=== PATIENT | female | born 1980 | race Caucasian/White ===

== ENCOUNTER 2016-11-20 16:04 | Emergency (ER) | payer MEDICAID ==
[~2016-11-20] VITALS: Ht 162.6 cm; Wt 66.2 kg
[2016-11-20] MEDS ORDERED: KETOROLAC TROMETHAMINE 15 MG INJ IM ONE (16:15)
[2016-11-20] MEDS ORDERED: IBUP-1954 PO (16:17)
--- NOTE | 2016-11-20 16:25 | NUR ---
UA COLLECTED AND SENT
--- NOTE | 2016-11-20 16:32 | NUR ---
PENDING HCG RESULT INORDER TO ADMINISTER TORADOL
[2016-11-20 16:36] LABS: CREATININE 0.9 mg/dL (0.6-1.3); POTASSIUM 4.3 mmol/L (3.5-5.1)
[2016-11-20] MEDS ORDERED: KETOROLAC TROMETHAMINE 30 MG INJ ONE (16:39)
[2016-11-20 16:42] LABS: BILIRUBIN,DIRECT 0.1 mg/dL (0.0-0.2); BILIRUBIN,TOTAL 0.3 mg/dL (0.2-1.0); TOTAL PROTEIN, SERUM 7.2 g/dL (6.4-8.2)
[2016-11-20 16:43] LABS: BASOPHILS % (AUTO) 0.4 % (0.0-2.0); EOSINOPHILS # (AUTO) 0.1 K/uL (0.0-0.7); EOSINOPHILS % (AUTO) 1.1 % (0.0-7.0); HEMATOCRIT 41.6 % (37-47); HEMOGLOBIN 14.2 G/DL (12.0-16.0); LYMPHOCYTES # (AUTO) 1.1 K/UL (0.8-4.8); LYMPHOCYTES % (AUTO) 13.3 % (20.5-51.5); MEAN CORPUSCULAR HEMOGLOBIN 30.6 UUG (27.0-31.0); MEAN CORPUSCULAR HGB CONC 34 g/dL (32.0-37.0); MEAN CORPUSCULAR VOLUME 89.9 FL (81.0-99.0); MONOCYTES # (AUTO) 0.2 K/UL (0.1-1.30); MONOCYTES % (AUTO) 2.9 % (0.0-11.0); NEUTROPHILS # (AUTO) 7.2 K/UL (1.8-8.9); NEUTROPHILS % (AUTO) 82.3 % (38.5-71.5); PLATELET COUNT (AUTO) 299 K/UL (150-450); RED BLOOD CELL COUNT(AUTO) 4.62 MIL/UL (4.2-5.4); WHITE BLOOD COUNT (AUTO) 8.6 K/UL (4.0-11.2)
[2016-11-20 16:49] LABS: *BLOOD, URINE 2+ (NEGATIVE); *COLOR,URINE YELLOW (YELLOW); *KETONES,URINE 1+ (NEGATIVE); *PROTEIN,URINE 1+ (NEGATIVE); LEUKOCYTE ESTERASE ,URINE NEGATIVE (NEGATIVE); NITRITE, URINE NEGATIVE (NEGATIVE); PH,URINE 5.5 (5.0-8.0); UGLUCOSE NEGATIVE (NEGATIVE)
[2016-11-20 17:00] LABS: *BILIRUBIN,URIN NEGATIVE (NEGATIVE); *CLARITY,URINE SLIGHTLY CLOUDY (CLEAR)
[2016-11-20 17:05] LABS: MUCUS,URINE MANY /LPF (0-FEW); RBC,URINE 50-80 /HPF (0-3); SQUAMOUS EPITHELIAL CELL,UR MODERATE /HPF (NONE SEEN); WBC,URINE 0-3 /HPF (0-3)
[2016-11-20 17:45] VITALS: BP 110/72
--- NOTE | 2016-11-20 17:46 | NUR ---
Patient discharged to home in stable conditon. Written and verbal after care instructions given. Patient verbalizes understanding of instructions. Prescription provided per MD's order. No further questions or concerns noted prior on leaving the ED.
== END 2016-11-20 17:46 | disposition home or self-care (01) ==
LOC: ER 16:10
DX: R10.2 Pelvic and perineal pain (principal); M54.30 Sciatica, unspecified side; F41.9 Anxiety disorder, unspecified; Z79.1 Long term (current) use of non-steroidal anti-inflammatories (NSAID)
CPT/HCPCS: 36415; 76856; 83690; 84703; 85025; A4663; J1885

== ENCOUNTER 2018-08-29 16:02 | Emergency (ER) | payer MEDICAID, OTHER ==
[~2018-08-29] VITALS: Ht 165.1 cm; Wt 66.7 kg
[~2018-08-29 16:02] MED LIST: IBUP-1954 PO
[2018-08-29] MEDS ORDERED: HYDROMORPHONE 1 MG/1 ML DISP.SYRIN IV ONE (16:15)
[2018-08-29] MEDS ORDERED: ONDANSETRON IV *ER 4 MG/2 ML VIAL IV ONE (16:15)
[2018-08-29] MEDS ORDERED: ONDANSETRON 4 MG/2 ML VIAL ONE (16:20)
[2018-08-29] MEDS ORDERED: HYDROMORPHONE 2 MG/1 ML DISP.SYRIN ONE (16:20)
--- NOTE | 2018-08-29 16:23 | NUR ---
PT IS IN ROOM #1B. DR ASHER EVALUATED THE PT.
--- NOTE | 2018-08-29 16:48 | NUR ---
X-RAY TECHNITIANS WERE UNABLE TO MAKE CD WITH US RESULTS FOR THE PT.
[2018-08-29 16:51] VITALS: BP 120/65
--- NOTE | 2018-08-29 16:51 | NUR ---
PT WAS D/C'd TO HOME. D/C INSTRUCTIONS GIVEN TO THE PT.
== END 2018-08-29 16:53 | disposition home or self-care (01) ==
LOC: ER 16:02
DX: N83.202 Unspecified ovarian cyst, left side (principal); Z88.8 Allergy status to other drugs, medicaments and biological substances; Z79.1 Long term (current) use of non-steroidal anti-inflammatories (NSAID)
CPT/HCPCS: 76856; 96374; 96375; 99284; J1170; J2405; A4663